=== PATIENT | female | born 1960 | race Caucasian/White ===

== ENCOUNTER 2017-10-05 07:36 | Inpatient (IN) ==
[2017-09-29 13:31] LABS: Basophils # (Auto) 0 K/mcL (0.0-0.3); Basophils % (Auto) 0.6 % (0.0-2.0); Eosinophils # (Auto) 0.1 K/mcL (0.0-0.7); Eosinophils % (Auto) 2.2 % (0.0-7.0); Granulocytes % (Auto) 46.5 % (38.0-78.0); Lymphocytes # (Auto) 2.2 K/mcL (1.5-4.8); Mean Cell Volume 91.3 fL (80.0-100.0); Mean Corpuscular HGB Conc 33.8 g/dL (31.0-36.0); Mean Corpuscular Hemoglobin 30.9 pg (26.0-34.0); Monocytes # (Auto) 0.5 K/mcL (0.1-0.9); Monocytes % (Auto) 9.7 % (1.0-12.0); Platelet Count 224 K/mcL (140-440); RBC 4.47 M/mcL (4.00-5.20); Red Cell Distribution Width 12.8 % (11.5-14.5)
[2017-09-29 13:44] LABS: Appearance,Urine CLEAR; Bilirubin,Urine NEG (NEG); Color,Urine YELLOW; Glucose,Urine (UA) NEGATIVE (NEG); Leukocyte Esterase,Urine NEG /uL (NEG); Protein,Urine NEG (NEG); Specific Gravity,Urine 1.017 (1.000-1.035); Urine Blood NEG mg/dL (<0.03); Urobilinogen,Urine NEG (NEG)
[2017-09-29 15:38] LABS: Blood Urea Nitrogen 19 mg/dl (6-20)
[~2017-10-05 07:36] MED LIST: 0.9 % SODIUM CHLORIDE 9 ML, KETOROLAC 30 MG, ROPIVACAINE HCL/PF 49.5 ML, EPINEPHrine 0.... IJ SCH; ACETAMINOPHEN 500 MG TABLET PO SCH; CELECOXIB 200 MG CAPSULE PO SCH; GABAPENTIN 100 MG CAPSULE PO SCH; ceFAZolin 1 GM VIAL IV SCH; oxyCODONE 10 MG TAB.ER.12H PO SCH
[2017-10-05] MEDS ORDERED: TRANEXAMIC ACID 1,000 MG/10 ML VIAL IV ONE ×3 (10:45→12:49)
[2017-10-05] MEDS ORDERED: DEXAMETHASONE 10 MG/ML VIAL IV ONE (10:45)
[2017-10-05] MEDS ORDERED: MIDAZOLAM 5 MG/5 ML VIAL IV ONE (10:45)
[2017-10-05] MEDS ORDERED: PROPOFOL 200 MG/20 ML VIAL IV ONE (10:45)
[2017-10-05] MEDS ORDERED: fentaNYL 100 MCG/2 ML VIAL IV ONE (10:45)
[2017-10-05] MEDS ORDERED: LIDOCAINE HCL/PF 100 MG/5 ML SYRINGE IV ONE (10:45)
[2017-10-05] MEDS ORDERED: ONDANSETRON 4 MG/2 ML VIAL IV ONE (10:45)
[2017-10-05] MEDS ORDERED: GENTAMICIN SULFATE 800 MG/20 ML VIAL IR ONE (11:28)
[2017-10-05] MEDS ORDERED: FLUMAZENIL 0.1 MG/ML ML IV PRN (11:51)
[2017-10-05] MEDS ORDERED: LACTATED RINGERS 250 ML IV PRN (11:51)
[2017-10-05] MEDS ORDERED: METHOCARBAMOL 1,000 MG/10 ML VIAL IV PRN (11:51)
[2017-10-05] MEDS ORDERED: MEPERIDINE 25 MG/ML SYRINGE IV PRN (11:51)
[2017-10-05] MEDS ORDERED: KETOROLAC 30 MG/ML VIAL IV PRN (11:51)
[2017-10-05] MEDS ORDERED: BENZOCAINE/MENTHOL 1 LOZENGE PO PRN ×2 (11:51→12:33)
[2017-10-05] MEDS ORDERED: ONDANSETRON 4 MG/2 ML VIAL IV PRN (11:51)
[2017-10-05] MEDS ORDERED: IPRATROPIUM/ALBUTEROL 3 ML AMPUL.NEB NEB PRN (11:51)
[2017-10-05] MEDS ORDERED: fentaNYL 100 MCG/2 ML VIAL IV PRN (11:51)
[2017-10-05] MEDS ORDERED: NALOXONE HCL 0.4 MG/ML VIAL IV PRN (11:51)
[2017-10-05] MEDS ORDERED: LACTATED RINGERS 1,000 ML IV SCH (12:00)
[2017-10-05] MEDS ORDERED: BISACODYL 10 MG SUPP.RECT PR PRN (12:33)
[2017-10-05] MEDS ORDERED: KETOROLAC 15 MG/ML VIAL IV PRN (12:33)
[2017-10-05] MEDS ORDERED: HYDROmorphone 2 MG/ML VIAL IV PRN (12:33)
[2017-10-05] MEDS ORDERED: TEMAZEPAM 15 MG CAPSULE PO PRN (12:33)
[2017-10-05] MEDS ORDERED: FLEETS ADULT ENEMA PR PRN (12:33)
[2017-10-05] MEDS ORDERED: MAGNESIUM HYDROXIDE 30 ML ORAL.SUSP PO PRN (12:33)
[2017-10-05] MEDS ORDERED: POLYETHYLENE GLYCOL 3350 17 GM PACKET PO PRN (12:33)
[2017-10-05] MEDS ORDERED: ACETAMINOPHEN 325 MG TABLET PO PRN (12:33)
[2017-10-05] MEDS ORDERED: ZOLPIDEM 5 MG TABLET PO PRN (12:40)
[2017-10-05] MEDS ORDERED: Aspirin/Acetaminophen/Caffeine [Excedrin Migraine] Cap PO PRN (12:40)
[2017-10-05] MEDS ORDERED: RIZATRIPTAN 10 MG TABLET PO PRN (12:40)
--- NOTE | 2017-10-05 13:40 | XRay Report ---
HISTORY: Reason for Exam:Post-op Total Hip FINDINGS: Patient has a newly inserted right total hip prosthesis. This is well-positioned and there is no fracture or abnormal soft tissue calcification. There is some air in the soft tissues around the hip due to the surgery. There is an indwelling well-positioned left hip prosthesis. There is no reabsorption of bone around the left prosthesis. The pelvis is otherwise normal. IMPRESSION: Well-positioned right total hip prosthesis Interpreted and Authenticated by: Alex Montana 10/05/17
[2017-10-05] MEDS: 0.9 % SODIUM CHLORIDE 10 ML SYRINGE IV SCH (13:55)
[2017-10-05] MEDS: HYDROcodone/APAP 10/325MG TABLET PO PRN ×3 (14:04→18:43)
[2017-10-05] MEDS: 0.45 % SODIUM CHLORIDE 1,000 ML IV SCH ×2 (14:05→23:00)
--- NOTE | 2017-10-05 16:11 | Brief Operative Note ---
Date of procedure: 10/05/17 Pre-op diagnosis: Right hip djd severe Post-op diagnosis: same Procedure: right branden cementless Grafts/Implants: Yes Anesthesia: GETA Findings: severe hip djd Complications Description: 10/05/17 16:10 none Surgeon: Kyler Lara Embroidery Specialist: Flaco Machado Estimated blood loss (cc): 100 Specimens Removed/Pathology: none sent Condition: stable Disposition: PACU
--- NOTE | 2017-10-05 16:31 | Operative Note ---
DATE OF OPERATION: 10/05/2017 PREOPERATIVE DIAGNOSIS: Right hip degenerative arthritis. POSTOPERATIVE DIAGNOSIS: Right hip degenerative arthritis. PROCEDURE: Right total hip arthroplasty. SURGEON: Kyler Lara M.D. AS400 OPERATOR: Flaco Machado PA-C. ANESTHESIA: General LMA anesthesia. COMPLICATIONS: None. IMPLANTS: Cementless Ligia total hip arthroplasty with a size 4 stem, neutral neck length, and a 52 acetabular cup with a 25 mm screw, highly cross-linked poly. DESCRIPTION OF PROCEDURE: The patient was brought to the operating room and put to sleep with general LMA anesthesia. Once asleep, the patient had the right hip sterilely prepped and draped in the usual sterile fashion. Once done, a time out was performed confirming the operative site. We made a superior approach to the hip after Ioban had been placed on the skin. Once this was done, we then exposed the fascial layer, placed a Charnley retractor and released the capsule. We dislocated the hip superiorly, irrigated thoroughly and then tagged the piriformis and capsule. Once done, we then dislocated the hip. We made the neck cut at 30 mm from the center of hip rotation, subluxed the hip anteriorly, reamed the cup up to a size 52 cup, implanted a 52 cup in about 20 degrees of anteversion and 40 degrees of inclination with a 25 mm screw. A hooded liner was placed. Once this was done, we then broached up on the femur for a size 4 stem. We trialed this with a neutral neck length. This seemed to be equal in leg length. This was placed, I think, with a ceramic 36 mm ball +2.5. This seemed to fit very nicely. Full range of motion was achieved. We irrigated and closed the capsule with #2 Ethibond, closed the fascial layer of the hip, after thorough irrigation and injecting the soft tissues, with a #1 Stratafix. The deep fascial layer was closed with #1 Stratafix and the skin was closed with adhesive closure. Sterile bandage applied. The patient left the operating room in good condition. RBH:herman Job ID: [id number] Doc ID: [id number] Kyler Lara MD
[2017-10-05] MEDS: ceFAZolin 1 GM VIAL IV SCH (19:30)
[2017-10-05] MEDS: GABAPENTIN 100 MG CAPSULE PO SCH (20:48)
[2017-10-05] MEDS: ASPIRIN 325 MG ENTERIC COATED TABLET PO SCH (20:48)
[2017-10-05] MEDS: SENNOSIDES 1 TABLET PO SCH (20:48)
[2017-10-05] MEDS: DOCUSATE SODIUM 100 MG CAPSULE PO SCH (20:49)
[2017-10-06] MEDS: 0.9 % SODIUM CHLORIDE 10 ML SYRINGE IV SCH ×4 (00:38→23:44)
[2017-10-06] MEDS: HYDROcodone/APAP 10/325MG TABLET PO PRN ×5 (00:50→23:50)
[2017-10-06] MEDS: ceFAZolin 1 GM VIAL IV SCH (02:54)
[2017-10-06] MEDS ORDERED: 0.9 % SODIUM CHLORIDE 500 ML IV ONE ×4 (03:58→23:43)
[2017-10-06] MEDS: LEVOTHYROXINE 75 MCG TABLET PO SCH (07:14)
--- NOTE | 2017-10-06 07:55 | Orthopedic Progress Note ---
Subjective Patient information: Note initiated : 10/06/17 at 7:53 am Service Date, if different from initiated Date: [] Patient: Hetal Dumont 56 y/o F admitted on 10/05/17 for Right Total Hip Arthroplasty. Chief Complaint: [Pt is stable this morning on post operative day 1 without any significant concerns or complaints. Patients vital signs have remained stable. Patients dressing is dry and is grossly instact from a neurovascular and motor standpoint. Patients 10 point ROS is otherwise negative except a hypotensive episode when ambulation. Bolus was given and pt has been stable since. ] Objective Vital signs: Vital Signs Temp Pulse Pulse Resp BP BP Pulse Ox 10/06/17 06:35 98.1 F 73 16 91/57 100 10/06/17 06:00 99 10/06/17 05:42 75 93/61 10/06/17 05:32 79 92/61 10/06/17 05:24 71 95/58 10/06/17 05:12 72 89/61 10/06/17 04:55 73 97/64 10/06/17 04:50 54 L 95/62 18 04:45 64 87/59 10/06/17 04:40 64 83/54 10/06/18 04:35 65 95/60 10/06/17 04:30 56 L 89/60 18 04:25 57 L 85/53 10/06/18 04:20 56 L 87/58 18 04:15 57 L 82/52 18 04:10 64 88/59 10/06/17 04:05 57 L 82/53 18 04:00 60 84/51 18 03:59 100 10/06/17 03:56 62 82/52 18 03:51 60 75/49 18 03:45 60 80/53 10/06/17 03:40 60 78/51 10/06/17 03:35 58 L 79/50 18 03:30 65 76/48 18 03:23 64 50/38 98 18 03:18 96 18 03:10 97.6 F 74 12 92/56 96 10/06/17 01:26 97 10/06/17 00:00 97.5 F 96 H 12 95/61 97 10/05/17 22:31 97 10/05/17 21:43 75 16 98 10/05/17 20:00 97.8 F 76 12 134/77 99 10/05/17 17:58 98 10/05/17 16:00 99 10/05/17 15:18 132/85 99 10/05/17 15:03 140/76 99 10/05/17 14:48 131/83 100 10/05/17 14:33 131/83 99 10/05/17 14:19 144/81 100 10/05/17 14:03 150/74 100 10/05/17 13:48 134/84 99 10/05/17 13:37 100 10/05/17 13:33 145/88 100 10/05/17 13:20 97.2 F 78 12 143/75 100 10/05/17 13:05 97.2 F 76 12 144/79 100 10/05/17 12:50 97.2 F 77 12 139/79 100 10/05/17 12:45 97.2 F 83 16 139/76 100 10/05/17 12:40 97.2 F 85 16 137/74 99 10/05/17 12:35 97.2 F 104 H 16 144/78 99 Intake and Output 10/05/17 10/06/17 10/06/17 21:59 05:59 13:59 Intake Total 1400 / 1400 650 / 650 Output Total 1874 300 / 300 Balance -475 / -475 350 / 350 Intake: Oral 1400 / 1400 650 / 650 Output: Void Amount 1874 300 / 300 Other: Meal Dinner Percent of Meal Consumed 100% Feeding Ability Independent # Voids 1 Weight 214 lb Intake & Output: Intake & Output 10/05/17 10/06/17 10/06/17 21:59 05:59 13:59 Intake Total 1400 / 1400 650 / 650 Output Total 1874 300 / 300 Balance -475 / -475 350 / 350 Weight 214 lb Intake: Oral 1400 / 1400 650 / 650 Output: Void Amount 1874 300 / 300 Other: Meal Dinner Percent of Meal Consumed 100% Feeding Ability Independent # Voids 1 Incision: Yes healing Incision clean and dry: Yes Dressing: Yes clean Weight bearing status: full Neurological exam IM: Yes motor sensory intact, Yes neurovascular intact Extremities exam IM: Yes Foot pink and warm, Yes neurovascular intact - Labs CBC & BMP: 10/06/17 05:10 09/29/17 11:20 Labs: Orthopedic Labs 09/29/17 11:21 PT 13.2 INR 1.0 APTT 29 10/06/17 09/29/17 05:10 11:21 Hgb 13.8 Hct 27.2 L 40.8 Assessment and Plan (1) Hx of total hip arthroplasty The patient has been educated regarding dressing care, Physical Therapy recommendations, home exercises, restrictions, and follow up appointments. The patient has had all necessary DME prescribed. The patient has remained relatively stable during their hospital course. Leave Dermabond patch intact until followup Status: Acute
--- NOTE | 2017-10-06 07:57 | Discharge Summary ---
Ortho Discharge - [facility] - Patient Instructions Diet: Regular Diet Activity: activity as tolerated, weight bearing as tolerated Total Hip Protocol: Follow activity instructions as provided by Physical Therapy. Dressing Care: May shower in 2 days Patient Education: Total Hip Replacement (DC) - Problem Maintenance (1) Hx of total hip arthroplasty Status: Acute - Follow Up Plan Follow Up Appointments: Kyler Lara MD [Physician] - 10/20/17 9:20 am Disposition: Home, Self-Care Prognosis: Good Rehab Potential: Good I certify that the patient requires SNF services: No Overall status at discharge: patient is progressing back to baseline - Orders For Discharge Prescriptions: Aspirin [Ecotrin] 325 mg PO BID #60 tab.ec Docusate Sodium [Colace] 100 mg PO BID #60 cap HYDROcodone/APAP 10/325MG [[place] 10-325Mg] 1 - 2 tab PO Q4HP PRN #75 tab PRN Reason: Pain Level 3-6
[2017-10-06] MEDS ORDERED: NALOXONE HCL 0.4 MG/ML VIAL IV PRN (08:35)
[2017-10-06] MEDS: ONDANSETRON 4 MG/2 ML VIAL IV PRN (09:18)
--- NOTE | 2017-10-06 09:28 | Internal Medicine Consult Note ---
Medical - CN: HPI - Data of Consult Consult date: 10/06/17 Requesting Physician: Kyler Lara Primary Care Provider: Roxane Gloria Family Provider: Roxane Gloria - Consult Narrative Reason for consult: passed out, syncope History of present illness: Ms. Dumont is a 56 year old F with history of asthma and migraine, had passed out this morning while using toilet, and a rapid response was called. She underwent right total hip arthroplasty without incident [address] Lara, who requested consultation to evaluate medical issues for her syncope. She denies any CAD or any prior cardiac history (not on any cardiac or antihypertensive medications), and reported one incident 3 years ago, when she passed out in her shower. She recalls she was somewhat lightheaded prior to that past incident. 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 Her stat EKG is sinus rhythm rate of 64, no evidence of ischemia. She does not have chest pain or angina symptoms, and is not under stress, but she is orthostatic positive. She appears pale, and thought that she may have been somewhat lightheaded. Recommend checking electrolytes, CBC monitoring, IV fluid normal saline for rehydration, transfuse if significant anemia. CC: Kyler Lara All systems: reviewed and no additional remarkable complaints except as stated - Constitutional Constitutional: Present: as per HPI - Cardiovascular Cardiovascular: Present: as per HPI Medical - CN: PMH Medical history: Asthma, osteoarthritis, migraine headache Surgical history: s/p left wrist carpal tunnel surgery, left knee arthroscopy, left hip arthroplasty, Pertinent family history: Patient is adopted Smoking status: Former smoker Drug use: none Alcohol use: rarely Medical - CN: Meds Home Medications Medication Instructions Recorded Confirmed Type Aspirin/Acetaminophen/Caffeine 1 tab PO PRN PRN 09/29/17 10/05/17 History [Excedrin Migraine Caplet] Calcium (Oyster Shell) [Oscal] 500 mg PO DAILY 09/29/17 10/05/17 History Estradiol [Estrace] 1 mg PO DAILY 09/29/17 10/05/17 History Gabapentin [Neurontin] 100 mg PO BID 09/29/17 10/05/17 History Hydrocodone/APAP 7.5/325Mg [[place] 1 tab PO Q6HP PRN 09/29/17 10/05/17 History 7.5-325Mg] Levothyroxine [Synthroid] 75 mcg PO QAMAC 09/29/17 10/05/17 History Multivit,Ther Iron,Ca,FA & Min 1 tab PO DAILY 09/29/17 10/05/17 History [Multivitamin W/Minerals] Rizatriptan [Maxalt-[facility] A[facility]] 10 mg PO PRN PRN 09/29/17 10/05/17 History Zolpidem [Ambien] 10 mg PO HSP PRN 09/29/17 10/05/17 History Aspirin [Ecotrin] 325 mg PO BID #60 tab.ec 10/06/17 Rx Docusate Sodium [Colace] 100 mg PO BID #60 cap 10/06/17 Rx HYDROcodone/APAP 10/325MG [[place] 1 - 2 tab PO Q4HP PRN #75 tab 10/06/17 Rx 10-325Mg] Allergies Allergy/AdvReac Type Severity Reaction Status Date / Time bee venom protein (honey bee) Allergy Severe Anaphylaxis Verified 10/05/17 07:53 walnut Allergy Severe Anaphylaxis Verified 10/05/17 07:54 Penicillins [PENICILLINS] AdvReac Mild VOMITING Verified 10/05/17 08:07 watermelon Allergy Severe Anaphylaxis Uncoded 10/05/17 07:54 Medical - CN: Exam - Constitutional Vitals: Temp Pulse Resp BP Pulse Ox 98.1 F 70 16 94/64 98 10/06/17 06:35 10/06/17 08:54 10/06/17 08:54 10/06/17 08:54 10/06/17 08:54 General appearance: obese - Head Head exam: Present: atraumatic, normocephalic - Eye Eye exam: Present: EOMI Pupils: Present: normal accommodation, PERRL - ENT ENT exam: Present: mucous membranes dry - Neck Neck exam: Present: full ROM. Absent: lymphadenopathy, meningismus - Respiratory Respiratory exam: Present: CTAB. Absent: accessory muscle use - Cardiovascular Cardiovascular exam: Present: +S1, +S2. Absent: diastolic murmur, gallop, rubs , systolic murmur - GI/Abdominal GI/Abdominal exam: Present: normal bowel sounds, soft. Absent: guarding, rebound, tenderness - Extremities Exam Extremities exam: Absent: pedal edema Additional comments: s/p right hip arthroplasty, tenderness at surgical site - Neurological Exam Neurological exam: Present: alert, CN II-XII intact, oriented X3 Medical - CN: Result - Labs CBC & Chem 7: 10/06/17 09:36 10/06/17 09:36 Labs: Short CBC 10/06/17 Range/Units 05:10 Hct 27.2 L (36.0-48.0) % - EKG Data EKG shows normal: sinus rhythm - EKG Data Prior EKG available for review: no Interpretation: normal EKG EKG comments: 10/06/17 08:35 Sinus rhythm, rate 64 Medical - CN: A/P (1) Syncope Status: Acute (2) Postoperative anemia Status: Acute (3) Dehydration Status: Acute (4) Hx of total hip arthroplasty Status: Acute - Narrative A/P Narrative: 56-year-old with history of asthma, OA, and migraine, no history of heart disease, experienced at postop syncope while using toilet. Likely a combination of dehydration, underlying borderline anemia, vasovagal stimuli, and Ambien effects. Recommend Orthostatic check, CMP, CBC differential, troponin, magnesium, phosphorus, check & replace electrolytes, CBC monitoring, IV fluid normal saline for rehydration, transfuse if significant anemia or symptomatic. Thank you for consult and allow us to participate in the care of this patient. We will follow with you
[2017-10-06 10:25] LABS: Mean Cell Volume 92.1 fL (80.0-100.0); Mean Corpuscular HGB Conc 33.7 g/dL (31.0-36.0); Platelet Count 176 K/mcL (140-440); RBC 2.91 M/mcL (4.00-5.20)
[2017-10-06 10:42] LABS: ALT/SGPT 19 U/l (0-40); Albumin/Globulin Ratio 1.6 (1.0-2.3); Alkaline Phosphatase 27 U/L (39-117); Bilirubin,Direct < 0.2 mg/dL (0.0-0.3); Blood Urea Nitrogen 14 mg/dl (6-20); Gamma Glutamyl Transpeptidase 5 U/L (5-36); Uric Acid 3.9 mg/dL (2.5-8.0)
[2017-10-06 11:19] LABS: Band Neutrophils % 2 % (0-10); Lymphocytes % 32 % (15-49); Monocytes % (Manual) 8 % (1-12); Platelet Estimate NORMAL (NORMAL); RBC Morphology NORMAL (NORMAL); Segmented Neutrophils % 58 % (38-78); Toxic Granulation 1+ (NONE SEEN)
[2017-10-06] MEDS: ESTRADIOL 1 MG TABLET PO SCH (12:03)
[2017-10-06] MEDS: ASPIRIN 325 MG ENTERIC COATED TABLET PO SCH ×2 (12:03→20:56)
[2017-10-06] MEDS: MULTIVIT,THER IRON,CA,FA & MIN 1 TABLET PO SCH (12:03)
[2017-10-06] MEDS: GABAPENTIN 100 MG CAPSULE PO SCH ×2 (12:03→20:56)
[2017-10-06] MEDS: CALCIUM (OYSTER SHELL) 500 MG TABLET PO SCH (12:03)
[2017-10-06] MEDS: DOCUSATE SODIUM 100 MG CAPSULE PO SCH ×2 (12:03→20:56)
[2017-10-06] MEDS ORDERED: 0.9 % SODIUM CHLORIDE 1,000 ML IV SCH (13:00)
[2017-10-06 13:01] LABS: Appearance,Urine CLEAR; Bilirubin,Urine NEG (NEG); Color,Urine YELLOW; Glucose,Urine (UA) NEGATIVE (NEG); Leukocyte Esterase,Urine NEG /uL (NEG); Protein,Urine NEG (NEG); Specific Gravity,Urine 1.011 (1.000-1.035); Urine Blood NEG mg/dL (<0.03); Urobilinogen,Urine NEG (NEG)
[2017-10-06] MEDS: 0.45 % SODIUM CHLORIDE 1,000 ML IV SCH (19:18)
[2017-10-06] MEDS: SENNOSIDES 1 TABLET PO SCH (20:56)
[2017-10-07] MEDS: 0.9 % SODIUM CHLORIDE 1,000 ML IV SCH ×3 (01:59→06:25)
[2017-10-07] MEDS: IBUPROFEN 200 MG TABLET PO PRN ×2 (02:06→09:34)
[2017-10-07] MEDS: 0.45 % SODIUM CHLORIDE 1,000 ML IV SCH ×2 (05:10→14:20)
[2017-10-07] MEDS: 0.9 % SODIUM CHLORIDE 10 ML SYRINGE IV SCH ×2 (05:11→14:15)
[2017-10-07 06:54] LABS: Basophils # (Auto) 0 K/mcL (0.0-0.3); Basophils % (Auto) 0.3 % (0.0-2.0); Eosinophils # (Auto) 0.1 K/mcL (0.0-0.7); Eosinophils % (Auto) 1.4 % (0.0-7.0); Granulocytes % (Auto) 54.1 % (38.0-78.0); Lymphocytes # (Auto) 1.7 K/mcL (1.5-4.8); Lymphocytes % (Auto) 32.9 % (15.5-49.0); Mean Cell Volume 93.8 fL (80.0-100.0); Mean Corpuscular HGB Conc 34.3 g/dL (31.0-36.0); Mean Corpuscular Hemoglobin 32.2 pg (26.0-34.0); Monocytes # (Auto) 0.6 K/mcL (0.1-0.9); Monocytes % (Auto) 11.3 % (1.0-12.0); Platelet Count 142 K/mcL (140-440); RBC 2.43 M/mcL (4.00-5.20)
[2017-10-07] MEDS: HYDROcodone/APAP 10/325MG TABLET PO PRN ×3 (06:59→16:37)
[2017-10-07] MEDS: LEVOTHYROXINE 75 MCG TABLET PO SCH (06:59)
[2017-10-07 07:10] LABS: Uric Acid 3.7 mg/dL (2.5-8.0)
[2017-10-07 07:13] LABS: ALT/SGPT 15 U/l (0-40); Albumin 2.7 gm/dL (3.2-5.2); Albumin/Globulin Ratio 1.4 (1.0-2.3); Alkaline Phosphatase 26 U/L (39-117); Blood Urea Nitrogen 10 mg/dl (6-20)
--- NOTE | 2017-10-07 08:25 | Internal Med Progress Note ---
Medical - PN: Subj Patient information: Note initiated : 10/07/17 at 8:23 am Service Date, if different from initiated Date: [] Patient: Hetal Dumont a 56 y/o F admitted on 10/05/17 for Right Total Hip Arthroplasty. Chief Complaint: [] Interval history: Ms. Dumont is a 56 year old F with history of asthma and migraine, s/p right total hip arthroplasty and had postop syncope yesterday morning while using toilet. Medical workup indicates she is dehydrated and have baseline anemia, for which she had complaints of lack of energy to Dr. Lara and was on iron therapy 2 weeks prior to surgery. Her postop syncope is likely combination of dehydration , baseline anemia, additional blood loss during surgery, leading to intravascular volume depletion, be on her normal compensatory capacity. Overnight, she received additional IV fluid rehydration, and her anemic status became obvious. Her age scratched her H&H is 7.8 and 22.8 today, which is acceptable (since without cardiac disease or issues). She needs to follow with her PCP to further evaluate the etiology and manage of her anemia. At the meantime, she should benefit from B12 folate and iron supplements, although the serum levels are pending at this time. Otherwise from medicine standpoint, she is ambulatory without difficulties or problems. I discussed these findings with Dr. Lara and will sign off. Thank you for consultation and allowing us to participate in the care of this patient. Please call for any further questions or problems. - Constitutional Vitals: Vital Signs Temp Pulse Resp BP Pulse Ox 98.9 F 94 H 18 131/84 98 10/07/17 06:40 10/07/17 08:18 10/07/17 06:44 10/07/17 08:18 10/07/17 06:44 Period Temp Pulse Resp BP Sys/Alfonso Pulse Ox Last 24 Hr 98.2 F-98.9 F 66-107 12-18 85-131/47-84 97-100 Intake and Output 10/06/17 10/07/17 10/07/17 21:59 05:59 13:59 Intake Total 1400 / 1400 1707 / 1707 250 / 250 Output Total 1790 / 1790 2350 / 2350 550 / 550 Balance -390 / -390 -643 / -643 -300 / -300 Weight 222 lb Intake & Output: Intake & Output 10/06/17 10/07/17 10/07/17 21:59 05:59 13:59 Intake Total 1400 / 1400 1707 / 1707 250 / 250 Output Total 1790 / 1790 2350 / 2350 550 / 550 Balance -390 / -390 -643 / -643 -300 / -300 Weight 222 lb Intake: IV 1107 / 1107 250 / 250 Sodium Chloride 0.45% 1,000 ml 470 / 470 @ 100 mls/hr IV .Q10H AMANDA Rx#: [id number] Sodium Chloride 0.9% 1,000 ml @ 637 / 637 250 / 250 200 mls/hr IV .Q5H AMANDA Rx#: [id number] Oral 1400 / 1400 600 / 600 Output: Void Amount 1790 / 1790 2350 / 2350 550 / 550 Other: Meal Dinner Percent of Meal Consumed 100% # Voids 1 1 General appearance: no acute distress - Head Head exam: Present: atraumatic, normocephalic - Eye Eye exam: Present: EOMI Pupils: Present: normal accommodation, PERRL - ENT ENT exam: Present: mucous membranes moist - Neck Neck exam: Present: full ROM. Absent: meningismus - Respiratory Respiratory exam: Present: CTAB. Absent: accessory muscle use - Cardiovascular Cardiovascular exam: Present: +S1, +S2. Absent: diastolic murmur, gallop, rubs , systolic murmur, tachycardia - GI/Abdominal GI/Abdominal exam: Present: normal bowel sounds, soft. Absent: guarding, rebound, tenderness - Extremities Exam Additional comments: s/p right hip arthroplasty, tenderness at surgical site; otherwise, no clubbing/ cyanosis/nor edema - Neurological Exam Neurological exam: Present: alert, CN II-XII intact, oriented X3 - Skin Skin exam: Present: dry, warm. Absent: rash Medical - PN: Obj Da - Labs CBC & Chem 7: 10/07/17 04:35 10/07/17 04:35 Labs: Abnormal Lab Results 10/07/17 10/07/17 10/06/17 04:35 04:35 09:36 RBC 2.43 L Hgb 7.8 L Hct 22.8 L WBC Morphology Toxic Granulation Chloride 111 H Anion Gap 6.0 L Creatinine 0.5 L Glucose 107 H 136 H Calcium 8.1 L 8.1 L Alkaline Phosphatase 26 L 27 L Total Protein 4.7 L 4.9 L Albumin 2.7 L 3.0 L Globulin 2.0 L 1.9 L 10/06/17 10/06/17 09:36 05:10 RBC 2.91 L Hgb 9.0 L Hct 26.8 L 27.2 L WBC Morphology Abnorm A Toxic Granulation 1+ A Chloride Anion Gap Creatinine Glucose Calcium Alkaline Phosphatase Total Protein Albumin Globulin Meds: Medications Acetaminophen (Tylenol) 650 mg PO Q6HP PRN PRN Reason: PAIN/FEVER > 101 Last Admin: 10/06/17 19:34 Dose: 650 mg Hydrocodone Bitart/Acetaminophen ([place] 10/325mg) 0 tab PO Q4HP PRN PRN Reason: PAIN LEVEL 3-6 Last Admin: 10/07/17 06:59 Dose: 1 tab Aspirin (Ecotrin) 325 mg PO BID [facility] Last Admin: 10/06/17 20:56 Dose: 325 mg Bisacodyl (Dulcolax) 10 mg WA Q2-3DAYS PRN PRN Reason: Constipation Calcium Carbonate/Glycine (Oscal) 500 mg PO DAILY [facility] Last Admin: 10/06/17 12:03 Dose: 500 mg Docusate Sodium (Colace) 100 mg PO BID [facility] Last Admin: 10/06/17 20:56 Dose: 100 mg Estradiol (Estrace) 1 mg PO DAILY [facility] Last Admin: 10/06/17 12:03 Dose: 1 mg Gabapentin (Neurontin) 100 mg PO BID [facility] Last Admin: 10/06/17 20:56 Dose: 100 mg Hydromorphone HCl (Dilaudid) 0 mg IV Q2HP PRN PRN Reason: PAIN LEVEL > 6 Last Admin: 10/05/17 14:04 Dose: 0.4 mg Sodium Chloride (Sodium Chloride 0.45%) 1,000 mls @ 100 mls/hr IV .Q10H [facility] Last Admin: 10/07/17 05:10 Dose: Not Given Sodium Chloride (Sodium Chloride 0.9%) 1,000 mls @ 200 mls/hr IV .Q5H [facility] Stop: 10/07/17 09:44 Last Admin: 10/07/17 06:25 Dose: 200 mls/hr Ibuprofen (Motrin) 400 mg PO Q6HP PRN PRN Reason: Pain Last Admin: 10/07/17 02:06 Dose: 400 mg Iron Carb/Multivit/Quay/Folic Acid (Multivitamin W/Minerals) 1 tab PO DAILY [facility] Last Admin: 10/06/17 12:03 Dose: 1 tab Ketorolac Tromethamine (Toradol) 15 mg IV Q6HP PRN PRN Reason: Pain Stop: 10/07/17 12:34 Last Admin: 10/06/17 08:58 Dose: 15 mg Levothyroxine Sodium (Synthroid) 75 mcg PO QAMAC [facility] Last Admin: 10/07/17 06:59 Dose: 75 mcg Magnesium Hydroxide (Milk Of Magnesia) 30 ml PO BIDP PRN PRN Reason: Constipation Naloxone HCl (Narcan) 0.4 mg IV ONCE PRN PRN Reason: Opiate Reversal Ondansetron HCl (Zofran) 4 mg IV Q4HP PRN PRN Reason: Nausea And Vomiting Last Admin: 10/06/17 09:18 Dose: 4 mg Aspirin/Acetaminophen/Caffeine [Excedrin Migraine] Cap 1 dose PO PRN PRN PRN Reason: Migraine Headache Polyethylene Glycol (Miralax) 17 gm PO DAILYP PRN PRN Reason: Constipation Rizatriptan Benzoate (Maxalt-Tip Stitcher) 10 mg PO PRN PRN PRN Reason: Migraine Headache Senna (Senokot) 2 tab PO HS [facility] Last Admin: 10/06/17 20:56 Dose: 2 tab Sodium Biphosphate/Sodium Phosphate (Fleets Adult) 1 dose WA Q3-4DAYS PRN PRN Reason: Constipation Sodium Chloride (Saline Flush) 10 ml IV Q8 [facility] Last Admin: 10/07/17 05:11 Dose: Not Given Temazepam (Restoril) 15 mg PO HSP PRN PRN Reason: Insomnia Last Admin: 10/06/17 23:49 Dose: 15 mg Throat Lozenges (Cepacol) 1 lozenge PO PRN PRN PRN Reason: Sore Throat Zolpidem Tartrate (Ambien) 10 mg PO HSP PRN PRN Reason: Sleep Last Admin: 10/05/17 20:57 Dose: 10 mg Medical - PN: A/P - Time Spent With Patient Total time spent is greater than 50% in coordination of care (as documented) at patient's floor/unit and/or counseling patient: 25 - 35 minutes (1) Syncope Status: Acute Assessment and plan: Combined factors of acute blood loss, underlying chronic anemia, dehydration, leads to significant intravascular volume depletion, beyond her usual compensatory capabilities Current Visit: Yes (2) Postoperative anemia Status: Acute Assessment and plan: She likely had underlying chronic anemia, which need to be worked up and follow with her PCP. Serum studies are pending at this time, she'll benefit from B12 folate and iron supplements. And she'll need a recheck of her H&H in 1-2 weeks with her outpatient PCP (post hospitalization) or Dr. Lara (postop follow-up Current Visit: Yes (3) Dehydration Status: Acute Assessment and plan: Rehydration, almost to baseline Current Visit: Yes (4) Hx of total hip arthroplasty Status: Acute Assessment and plan: Rehabilitation Per PT-OT & Dr. Lara, and DVT prophylaxis per Dr. Lara Current Visit: Yes - Narrative A/P Narrative: I will sign off, please call for any questions or problems. Thank you for the consultation and allowing us to participate in the care of this patient
[2017-10-07] MEDS ORDERED: CYANOCOBALAMIN (VITAMIN B-12) 500 MCG TABLET PO SCH (09:00)
[2017-10-07] MEDS ORDERED: FOLIC ACID 1 MG TABLET PO SCH (09:00)
[2017-10-07] MEDS: GABAPENTIN 100 MG CAPSULE PO SCH (09:34)
[2017-10-07] MEDS: CALCIUM (OYSTER SHELL) 500 MG TABLET PO SCH (09:34)
[2017-10-07] MEDS: ASPIRIN 325 MG ENTERIC COATED TABLET PO SCH (09:37)
[2017-10-07] MEDS: MULTIVIT,THER IRON,CA,FA & MIN 1 TABLET PO SCH (09:37)
[2017-10-07] MEDS: ESTRADIOL 1 MG TABLET PO SCH (09:37)
[2017-10-07] MEDS: DOCUSATE SODIUM 100 MG CAPSULE PO SCH (09:37)
[2017-10-07 09:47] LABS: Retic Absolute 1.5 % (0.5-1.5)
[2017-10-07 10:07] LABS: Iron 11 mcg/dl (37-145); Transferrin % Saturation 6 % (15-50); Unsaturated Iron Binding 161 mcg/dL (112-346)
[2017-10-07] MEDS ORDERED: FERROUS SULFATE 325 MG TABLET PO SCH (12:00)
[2017-10-07] MEDS: ONDANSETRON 4 MG/2 ML VIAL IV PRN (12:32)
== END 2017-10-07 16:40 | disposition home or self-care (01) | DRG 470 ==
LOC: MEDSUR 07:36
PROVIDERS: ADMIT Orthopaedic Surgery; ATTEND Orthopaedic Surgery